=== PATIENT | female | born 1970 | race Caucasian/White ===

== ENCOUNTER 2020-10-06 12:54 | Emergency (ER) | payer MEDICAID ==
[~2020-10-06] VITALS: Ht 160 cm; Wt 94.5 kg
[~2020-10-06 12:54] MED LIST: PHEN-716 PO
[2020-10-06 13:11] VITALS: BP 132/77
[2020-10-06] MEDS ORDERED: BENZ-16 PO (13:31)
[2020-10-06] MEDS ORDERED: ALBU8HFA PO (13:31)
== END 2020-10-06 13:57 | disposition home or self-care (01) ==
LOC: ER 12:55
DX: U07.1 COVID-19 (principal); R51.9 Headache, unspecified; R43.8 Other disturbances of smell and taste; R05 Cough; Z86.69 Personal history of other diseases of the nervous system and sense organs; Z98.890 Other specified postprocedural states; Z88.1 Allergy status to other antibiotic agents; Z79.899 Other long term (current) drug therapy
CPT/HCPCS: 36415; 99283; U0003; U0005

== ENCOUNTER 2021-11-06 12:33 | Emergency (ER) | payer MEDICAID ==
[~2021-11-06] VITALS: Ht 160 cm; Wt 113.5 kg
[2021-11-06 13:28] VITALS: BP 149/99
== END 2021-11-06 20:40 | disposition left against medical advice (07) ==
LOC: ER 12:34
DX: L02.01 Cutaneous abscess of face (principal); Z53.21 Procedure and treatment not carried out due to patient leaving prior to being seen by health care provider

== ENCOUNTER 2021-11-27 10:35 | Emergency (ER) | payer MEDICAID ==
[~2021-11-27] VITALS: Ht 160 cm; Wt 103.0 kg
[2021-11-27 10:50] VITALS: BP 120/73
[2021-11-27] MEDS ORDERED: dexamethasone sod phosphate 10mg/ml inj PO STA (11:10)
[2021-11-27] MEDS ORDERED: diphenhydrAMINE 25mg capsule PO ONE (11:10)
[2021-11-27] MEDS ORDERED: PRED20TA PO (11:12)
[2021-11-28] MEDS ORDERED: FAMO-128 PO (05:24)
[2021-11-28] MEDS ORDERED: DIPH25CA83 PO (05:24)
== END 2021-11-27 11:33 | disposition home or self-care (01) ==
LOC: ER 10:35
DX: T78.40XA Allergy, unspecified, initial encounter (principal); Z88.1 Allergy status to other antibiotic agents; Z79.899 Other long term (current) drug therapy
CPT/HCPCS: 99283; J1100; Q0163

== ENCOUNTER 2021-11-28 03:46 | Emergency (ER) | payer MEDICAID ==
[~2021-11-28] VITALS: Ht 160 cm; Wt 103.2 kg
[~2021-11-28 03:46] MED LIST changes: +PRED20TA PO
[2021-11-28 04:02] VITALS: BP 146/86
[2021-11-28] MEDS ORDERED: diphenhydrAMINE 25mg capsule PO ONE (05:20)
[2021-11-28] MEDS ORDERED: triamcinolone acetonide 40mg/ml inj IM ONE (05:20)
[2021-11-28] MEDS ORDERED: famotidine 20mg tablet PO ONE (05:20)
[2021-11-28] MEDS ORDERED: LORazepam 0.5 MG tablet PO PRN (05:20)
[2021-11-28] MEDS ORDERED: FAMO-128 PO (05:24)
[2021-11-28] MEDS ORDERED: DIPH25CA83 PO (05:24)
== END 2021-11-28 05:44 | disposition home or self-care (01) ==
LOC: ER 03:46
DX: T78.40XD Allergy, unspecified, subsequent encounter (principal); Z86.69 Personal history of other diseases of the nervous system and sense organs; Z88.1 Allergy status to other antibiotic agents; Z79.899 Other long term (current) drug therapy; X58.XXXD Exposure to other specified factors, subsequent encounter
CPT/HCPCS: 96372; 99284; J3301; Q0163

== ENCOUNTER 2022-02-24 05:34 | Day surgery (SDC) | payer MEDICAID ==
[2022-02-23 10:45] LABS: BASOPHILS % (AUTO) 0.7 % (0-1); EOSINOPHILS # (AUTO) 0.6 X10'3 (0-0.9); EOSINOPHILS % (AUTO) 11.3 % (0-6); LYMPHOCYTES # (AUTO) 1.2 X10'3 (1.1-4.8); LYMPHOCYTES % (AUTO) 23.8 % (21-51); MEAN CORPUSCULAR HEMOGLOBIN 30.9 PG (27.0-31.0); MEAN CORPUSCULAR HGB CONC 33.6 g/dL (33.0-36.5); MEAN PLATELET VOLUME 7.4 FL (7.4-10.4); MONOCYTES # (AUTO) 0.5 X10'3 (0-0.9); NEUTROPHILS # (AUTO) 2.8 X10'3 (1.8-7.7); NEUTROPHILS % (AUTO) 55.2 % (42-75); PRE OP HEMOGLOBIN 14.1 g/dL (12.0-16.0); PRE OP PLATELET COUNT 271 X10'3 (140-440); RED BLOOD COUNT 4.57 X10'6 (4.20-5.60); RED CELL DISTRIBUTION WIDTH 13.1 % (11.5-14.5)
[2022-02-23 11:11] LABS: ALBUMIN 3.8 G/DL (3.4-5.0); ALKALINE PHOSPHATASE 87 IU/L (46-116); BLOOD UREA NITROGEN 12 MG/DL (7-18); CALCIUM 9.1 MG/DL (8.5-10.1); CHLORIDE 103 MMOL/L (99-107); CREATININE 0.86 MG/DL (0.40-0.90); PRE OP ALT 24 U/L (30-65); PRE OP ANION GAP 7 (8-16); PRE OP AST 21 U/L (10-37); PRE OP BILIRUB, TOTAL 0.5 MG/DL (0.0-1.0); PRE OP GLUCOSE 95 MG/DL (70-104); PRE OP POTASSIUM 4.2 MMOL/L (3.4-5.1); PRE OP SODIUM 138 MMOL/L (135-145); TOTAL CARBON DIOXIDE 27.7 MMOL/L (24-32); TOTAL PROTEIN 7.7 G/DL (6.4-8.2); eGFR 70 ML/MIN
[~2022-02-24] VITALS: Ht 162.6 cm; Wt 107.0 kg
[2022-02-24] VITALS (7 sets, daily range): BP systolic 124–136; BP diastolic 70–82
[~2022-02-24 05:34] MED LIST changes: +DIVA-74 PO; +FOLI1TAB27 PO; -PHEN-716 PO; -PRED20TA PO; +ceFAZolin inj. 2,000 MG in dextrose 5%-water 100 ML IV ONE; +famotidine 20mg tablet PO ONE; +ringers solution, lacted 1,000 ML IV SCH
[2022-02-24] MEDS ORDERED: LIDOcaine 1% 30ml preserv. free vial ONE (06:44)
[2022-02-24] MEDS ORDERED: BUPIVAcaine 0.5% inj/PF 30 ML ONE (06:44)
[2022-02-24] MEDS ORDERED: midazolam 1 mg/ML 2ml injection ONE (07:21)
[2022-02-24] MEDS ORDERED: fentaNYL/PF 50MCG/1 ML 2ML syringe ONE ×2 (07:21→08:23)
[2022-02-24] MEDS ORDERED: morphine 4 MG/ML inj SYRINge IV PRN (08:00)
[2022-02-24] MEDS ORDERED: proCHLORperazine 10 MG/2 ml inj IV PRN (08:00)
[2022-02-24] MEDS ORDERED: meperidine/PF 25mg/ml syringe IV PRN ×3 (08:00)
[2022-02-24] MEDS ORDERED: morphine 2 MG/ML inj. syringe IV PRN (08:00)
[2022-02-24] MEDS ORDERED: ondansetron/PF 4mg/2ml inj IV PRN (08:00)
[2022-02-24] MEDS ORDERED: ringers solution, lacted 1,000 ML IV SCH (08:00)
[2022-02-24] MEDS ORDERED: BUPIVAcaine 0.5% inj/PF 30 ml vial IJ ONE (08:06)
[2022-02-24] MEDS ORDERED: LIDOcaine 2% (20mg/ml) 5ml vial ONE (08:53)
[2022-02-24] MEDS ORDERED: ondansetron/PF 4mg/2ml inj ONE (08:53)
[2022-02-24] MEDS ORDERED: albuterol 60 PUFF/8GM Inhaler IH ONE (08:53)
[2022-02-24] MEDS ORDERED: dexamethasone sod phosphate 4mg/ml inj. ONE (08:53)
[2022-02-24] MEDS ORDERED: propofol inj 20 ML IV ONE (08:53)
--- NOTE | 2022-02-24 09:08 | NUR ---
Received from OR via , accompanied by Anesthesiologist DR THOMAS and report given by Anesthesiolgist. PT PRESENTS WITH PIV 20G RIGHT HAND, LEFT NECK BANDAID CDI, RIGHT NECK DERMABOND CDI, VSS. Addendum: 02/24/22 at 1030 by Joyce Malloy RN, RN Amended: Links added.
--- NOTE | 2022-02-24 10:18 | NUR ---
PT HAS MET D/C CRITERIA. IV D/C'D. VSS. DRESSING C/D/I. . I HAVE REVIEWED D/C INSTRUCTIONS WITH PATIENT AND SHE HAS VERBALIZED UNDERSTANDING OF INSTRUCTIONS. PATIENT D/C HOME WITH ALL BELONGINGS Addendum: 02/24/22 at 1023 by Joyce Malloy RN, RN Amended: Links added.
== END 2022-02-24 10:18 | disposition home or self-care (01) ==
LOC: PAS 05:34
PROVIDERS: ATTEND Surgery
DX: R22.1 Localized swelling, mass and lump, neck (principal); D17.0 Benign lipomatous neoplasm of skin and subcutaneous tissue of head, face and neck; L72.0 Epidermal cyst; Z79.899 Other long term (current) drug therapy; Z88.1 Allergy status to other antibiotic agents; Z88.8 Allergy status to other drugs, medicaments and biological substances; Z91.018 Allergy to other foods; Z98.890 Other specified postprocedural states
CPT/HCPCS: 11422; 21556; 36415; 80053; 82948; 85025; J0690; J1100; J2250; J2405; J2704; J3010; J3490; J7030; J7060; J7120; S0020; Z7506; Z7508; Z7512; A4215; A4618; A7000